=== PATIENT | female | born 1965 | race Caucasian/White ===

== ENCOUNTER 2018-12-23 14:04 | Emergency (ER) | payer MEDICARE, MEDICAID ==
[~2018-12-23] VITALS: Ht 160 cm; Wt 56.7 kg
--- NOTE | 2018-12-23 14:09 | NUR ---
CAROLYN FROM [facility] FOR C/O CHEST PAIN; PT AAOX4, PT ON MONITOR, VSS, PENDING MD FELDMAN
[2018-12-23] MEDS ORDERED: SEVE800T8 PO (14:15)
[2018-12-23 14:30] LABS: BASOPHILS % (AUTO) 0.8 % (0.0-2.0); EOSINOPHILS % (AUTO) 1.4 % (0.0-6.0); HEMATOCRIT 28 % (33-45); HEMOGLOBIN 9.3 g/dL (11.5-14.8); LYMPHOCYTES # (AUTO) 0.7 /CMM (0.8-4.8); LYMPHOCYTES % (AUTO) 14.4 % (20.0-44.0); MEAN CORPUSCULAR HGB CONC 33 g/dl (31.0-36.0); MEAN CORPUSCULAR VOLUME 100 fL (82-100); MONOCYTES # (AUTO) 0.3 /CMM (0.1-1.30); MONOCYTES % (AUTO) 6.6 % (2.0-12.0); NEUTROPHILS % (AUTO) 76.8 % (43.0-81.0); PLATELET COUNT (AUTO) 280 /CMM (150-450); RED BLOOD CELL COUNT(AUTO) 2.77 MIL/uL (4.0-5.2); WHITE BLOOD COUNT (AUTO) 5.2 K/uL (4.3-11.0)
[2018-12-23] MEDS ORDERED: ASPIRIN 81 MG TAB.CHEW PO ONE (14:30)
[2018-12-23] MEDS ORDERED: ASPIRIN 81 MG TAB.CHEW ONE (14:40)
[2018-12-23 14:45] LABS: ALANINE AMINOTRANSFERASE 40 U/L (12-78); ALBUMIN 2.9 g/dL (3.4-5.0); ALKALINE PHOSPHATASE 224 U/L (46-116); ASPARTATE AMINOTRANSFERASE 27 U/L (15-37); BILIRUBIN,DIRECT 0.1 mg/dL (0.0-0.2); BILIRUBIN,TOTAL 0.3 mg/dL (0.2-1.0); CALCIUM, SERUM 9.8 mg/dL (8.5-10.1); CARBON DIOXIDE 26 mmol/L (21-32); CHLORIDE 103 mmol/L (98-107); GLUCOSE 99 mg/dL (74-106); POTASSIUM 3.7 mmol/L (3.5-5.1); SODIUM SERUM 139 mmol/L (136-145); TOTAL PROTEIN, SERUM 7.5 g/dL (6.4-8.2); UREA NITROGEN, BLOOD 38 mg/dL (7-18)
--- NOTE | 2018-12-23 15:17 | NUR ---
CALLED [facility]. EXPECTING A CALL FROM DR DUFFY
--- NOTE | 2018-12-23 16:35 | NUR ---
RECEIVED A CALL FROM MUNDO: PT GOING TO [facility] ACCEPTING MD DR. HANNA REPORT: [phone] ETA:[id number]
--- NOTE | 2018-12-23 16:50 | NUR ---
report given to tigre vaughan for silvino at [facility]
[2018-12-23 17:00] VITALS: BP 115/75
--- NOTE | 2018-12-23 17:39 | NUR ---
[facility] TO TRANSFER TO [facility]; REPORT GIVEN TO AMBULANCE STAFF. PT STABLE FOR TRANSFER, VSS.
== END 2018-12-23 19:07 | disposition short-term general hospital (02) ==
LOC: ER 14:10
DX: R07.89 Other chest pain (principal); E11.22 Type 2 diabetes mellitus with diabetic chronic kidney disease; I12.0 Hypertensive chronic kidney disease with stage 5 chronic kidney disease or end stage renal disease; N18.6 End stage renal disease; Q61.8 Other cystic kidney diseases; R56.9 Unspecified convulsions; R01.1 Cardiac murmur, unspecified; Z60.2 Problems related to living alone; Z99.2 Dependence on renal dialysis
CPT/HCPCS: 36415; 71045-TC; 80048-TC; 80076-TC; 84484-TC; 85025-TC